=== PATIENT | female | born 1955 | race African-American/Black ===

== ENCOUNTER 2018-12-16 16:02 | Emergency (ER) | payer MEDICARE, OTHER ==
[~2018-12-16] VITALS: Ht 167.6 cm; Wt 50.0 kg
[2018-12-16 16:54] LABS: BASOPHILS % 0.5 % (0.0-2.0); EOSINOPHILS % 0.3 % (0.0-5.0); HEMATOCRIT. 54.2 % (36.0-48.0); HEMOGLOBIN. 17.5 g/dL (12.0-16.0); LYMPHOCYTES % 12.1 % (20.0-50.0); MEAN CORPUSCULAR HEMOGLOBIN 29.7 pg (28.0-32.0); MEAN CORPUSCULAR VOLUME 91.7 fL (81.0-99.0); MEAN PLATELET VOLUME 8.2 fl (7.4-10.4); MONOCYTES % 5.4 % (2.0-8.0); NEUTROPHILS % 81.7 % (40.0-76.0); PLATELET 294 x1000/uL (130-400); RED CELL DISTRIBUTION WIDTH 13.9 % (11.6-14.6)
[2018-12-16 17:00] LABS: PROTHROMBIN TIME 10.7 sec (9.6-11.0)
[2018-12-16 17:01] LABS: CHLORIDE 126 mEq/L (98-107)
[2018-12-16] MEDS ORDERED: CEFTRIAXONE 1 G PREMIX 50 ML IV ONE (17:15)
[2018-12-16] MEDS ORDERED: SODIUM CHLORIDE 0.9% 1000ML BAG (SEPSIS BOLUS) IV ONE (17:15)
[2018-12-16] MEDS ORDERED: MORPHINE SULFATE 4 MG/ML CPJ (NOT FOR IM USE) IV ONE (18:15)
[2018-12-16 19:15] LABS: CLARITY URINE TURBID (CLEAR); COLOR URINE AMBER (YELLOW); KETONES URINE TRACE (NEGATIVE); LEUKOCYTE ESTERASE URINE 3+ (NEGATIVE); NITRITE URINE NEGATIVE (NEGATIVE); OCCULT BLOOD URINE 3+ (NEGATIVE); PROTEIN URINE 3+ (NEGATIVE)
[2018-12-16 19:41] LABS: INR 1.1; PROTHROMBIN TIME 10.8 sec (9.6-11.0)
[2018-12-16 21:12] VITALS: BP 120/86
== END 2018-12-16 23:14 | disposition short-term general hospital (02) ==
LOC: ER 16:02 → CANBEDREQ 17:53 → ER 23:14
DX: S72.301A Unspecified fracture of shaft of right femur, initial encounter for closed fracture (principal); R65.20 Severe sepsis without septic shock; E87.0 Hyperosmolality and hypernatremia; N39.0 Urinary tract infection, site not specified; G35 Multiple sclerosis; X58.XXXA Exposure to other specified factors, initial encounter; Y93.89 Activity, other specified; Y92.89 Other specified places as the place of occurrence of the external cause; Y99.8 Other external cause status
CPT/HCPCS: 36415; 71045; 73502; 73552; 80053; 81003; 83605; 84145; 85025; 85610; 87040; 87077; 87086; 87186; 93005; 96365; 96366; 96375; 99291; J0696; J2270; J7030; A4315